=== PATIENT | male | born 1980 | race African-American/Black ===

== ENCOUNTER 2020-06-25 03:49 | Emergency (ER) | payer SELFPAY ==
[~2020-06-25] VITALS: Ht 172.7 cm; Wt 64.0 kg
[2020-06-25] MEDS ORDERED: SODIUM CHLORIDE 0.9% 1,000 ML IV ONE (04:30)
[2020-06-25] MEDS ORDERED: LORAZEPAM 2MG/ML CPJ IV ONE (04:30)
[2020-06-25] MEDS ORDERED: OLANZAPINE 10 MG/VIAL IM ONE (04:30)
[2020-06-25 05:15] LABS: HEMATOCRIT. 43.9 % (42.0-52.0); HEMOGLOBIN. 14.7 g/dL (14.0-18.0); MEAN CORPUSCULAR HEMOGLOBIN 31.3 pg (28.0-32.0); MEAN CORPUSCULAR VOLUME 93.3 fL (80.0-94.0); MEAN PLATELET VOLUME 10.9 fl (7.4-10.4); PLATELET 122 x1000/uL (130-400); RED BLOOD CELL COUNT 4.71 mill/uL (4.7-6.1); RED CELL DISTRIBUTION WIDTH 13.2 % (11.6-14.6)
[2020-06-25 05:33] LABS: CHLORIDE 108 mEq/L (98-107)
[2020-06-25 05:38] LABS: ETHANOL BLOOD < 10 mg/dL
[2020-06-25 06:12] LABS: *COCAINE SCREEN URINE NEGATIVE (NEGATIVE); METHADONE URINE SCREEN NEGATIVE (NEGATIVE); OPIATES URINE SCREEN NEGATIVE (NEGATIVE)
[2020-06-25 06:13] LABS: *AMPHETAMINES SCREEN URINE PRESUMTIVE POSITIVE (NEGATIVE); *BARBITURATES SCREEN URINE NEGATIVE (NEGATIVE); *BENZODIAZEPINES SCREEN URINE NEGATIVE (NEGATIVE); CANNABINOID URINE SCREEN PRESUMTIVE POSITIVE (NEGATIVE); PHENCYCLIDINE URINE SCREEN NEGATIVE (NEGATIVE)
[2020-06-25 07:06] LABS: PLATELET ESTIMATE SLIGHTLY DECREASED
[2020-06-25] MEDS ORDERED: ACETAMINOPHEN 325MG TABLET PO ONE (08:30)
[2020-06-25 09:26] VITALS: BP 112/77
== END 2020-06-25 09:38 | disposition home or self-care (01) ==
LOC: ER 03:49
DX: M79.601 Pain in right arm (principal); F12.10 Cannabis abuse, uncomplicated; F19.10 Other psychoactive substance abuse, uncomplicated; F15.10 Other stimulant abuse, uncomplicated; V49.88XA Car occupant (driver) (passenger) injured in other specified transport accidents, initial encounter; Y93.89 Activity, other specified; Y92.89 Other specified places as the place of occurrence of the external cause; Y99.8 Other external cause status
CPT/HCPCS: 36415; 80053; 80305; 80307; 80320; 80329; 85025; 93005; 96360; 96361; 99284; J7030; G0480